=== PATIENT | female | born 1955 | race Caucasian/White ===

== ENCOUNTER → 2020-09-17 12:38 | Outpatient (CLI) | payer MEDICARE, SELFPAY ==
[2020-09-17] MEDS: COVID-19 VACC #1, MRNA(MOD) 100 MCG/0.5 ML VIAL IM (12:52)
== END ==
PROVIDERS: Visit Provider Internal Medicine
DX: Z23 Encounter for immunization (principal)
CPT/HCPCS: 0011A; 91301